=== PATIENT | female | born 1950 | race Caucasian/White ===

== ENCOUNTER → 2018-06-20 17:18 | Outpatient (REF) | payer MEDICARE, SELFPAY ==
[2018-06-20 17:58] LABS: Add Manual Diff / Slide Review NO; Basophils Absolute Auto 100 /uL (0-100); Basophils Percent Auto 2.3 % (0-2); Eosinophils Absolute Auto 100 /uL (0-450); Eosinophils Percent Auto 1.8 % (2-4); Hematocrit 41.6 % (36-46); Hemoglobin 13.8 g/dL (12.0-16.0); Lymphocytes Absolute Auto 1300 /uL (1100-4500); Lymphocytes Percent Auto 28.5 % (25-40); Mean Corpuscular HGB Conc 33.1 % (30-36); Mean Corpuscular Hemoglobin 29.6 PG (26-34); Mean Corpuscular Volume 89.3 fL (80-100); Monocytes Absolute Auto 300 /uL (0-900); Monocytes Percent Auto 6.3 % (3-14); Neutrophils Absolute Auto 2800 /uL (1500-7000); Neutrophils Percent Auto 61.1 % (50-75); Platelet Count 215 X10^3/uL (150-400); Red Blood Cell Count 4.66 X10^6/uL (4.0-5.2); Red Cell Distribution Width 12.9 % (11.6-14.8); White Blood Cell Count 4.6 X10^3/uL (4.5-11.0)
[2018-06-20 18:25] LABS: Erythrocyte Sedimentation Rate 8 MM/HR (0-20)
[2018-06-20 18:27] LABS: Alanine Aminotransferase 52 IU/L (9-52); Albumin 4.6 g/dL (3.5-5.0); Albumin Globulin Ratio 1.6 (1.0-2.8); Alkaline Phosphatase 64 U/L (38-126); Aspartate Aminotransferase 32 IU/L (14-36); BUN Creatinine Ratio 21.7 (6-22); Bilirubin Total 0.7 mg/dL (0.2-1.3); Blood Urea Nitrogen 13 mg/dL (7-17); Calcium 9.6 mg/dL (8.4-10.2); Carbon Dioxide 26 mmol/L (22-32); Chloride 103 mmol/L (98-107); Estimated Glomerular Filt Rate > 60.0 mL/min (>60); Globulin 2.9 g/dL (1.7-4.1); Glucose 97 mg/dL (80-110); HEMOLYSIS < 15 (0-50); Sodium 139 mmol/L (137-145); Total Protein 7.5 g/dL (6.3-8.2)
[2018-06-20 18:34] LABS: Rheumatoid Factor < 8.6 IU/mL (<12.0)
[2018-06-20 19:16] LABS: Vitamin B12 913 pg/mL (239-931)
[2018-06-22 21:52] LABS: ANA Screen, IFA Negative (Negative)
[2018-06-22 22:36] LABS: Albumin 4.7 g/dL (3.8-4.8); Alpha 1 Globulin 0.2 g/dL (0.2-0.3); Alpha 2 Globulin 0.6 g/dL (0.5-0.9); Beta 1 Globulin 0.4 g/dL (0.4-0.6); Gamma Globulin 0.9 g/dL (0.8-1.7); Protein, Total 7.1 g/dL (6.1-8.1)
[2018-06-24 08:28] LABS: Vitamin B6 81.7 ng/mL (2.1-21.7)
== END ==
LOC: LAB 17:18
PROVIDERS: Visit Provider Family Medicine Geriatric Medicine
DX: R94.5 Abnormal results of liver function studies (principal); K90.3 Pancreatic steatorrhea; R10.9 Unspecified abdominal pain; G62.9 Polyneuropathy, unspecified; G60.9 Hereditary and idiopathic neuropathy, unspecified
CPT/HCPCS: 36415; 80053; 82607; 84155; 84165; 84207; 84550; 85025; 85651; 86038; 86430

== ENCOUNTER → 2018-07-18 11:01 | Outpatient (CLI) | payer MEDICARE, SELFPAY ==
--- NOTE | 2018-07-18 12:00 | PM.TREADMILL ---
Cardiac Stress Test Report Referral & Results Date Patient Seen: 07/18/18 Requesting provider: Wil Corey Indication: Paroxysmal atrial fibrillation Rest ECG: Unremarkable Procedure Note: Today following both written and verbal informed consent, the patient was exercised according to a standard Jerry protocol. The patient exercised for a total of 6 minutes 14 seconds achieving a maximum heart rate of 119. Patient's maximum systolic blood pressure was 168. This was an estimated 7.0 MET's. There are no ST-T segment changes identified Normal heart rate and blood pressure response to exercise No dysrhythmias identified Functional aerobic impairment rates-5% on the active scale or 105% of normal Impression: No evidence of ischemia Better than average exercise capacity No dysrhythmia Please note: Actual ECG tracings can be found in the PACS system.
== END ==
PROVIDERS: PCP Family Medicine Geriatric Medicine; Visit Provider Internal Medicine Cardiovascular Disease
DX: I48.0 Paroxysmal atrial fibrillation (principal)
CPT/HCPCS: 93016; 93017; 93018

== ENCOUNTER 2023-09-01 09:05 | Day surgery (SDC) | payer MEDICARE, SELFPAY ==
[2023-08-24 07:56] VITALS: BMI 22.1
[2023-09-01] VITALS (8 sets, daily range): BP systolic 125–156; BP diastolic 68–88; PULSE 62–71; RESP 12–18; TEMP 36.6–36.9; O2SAT 96–100; BMI 22.1
[2023-09-01] MEDS: LACTATED RINGERS 1,000 ML 42 ML IV (09:59)
--- NOTE | 2023-09-01 11:55 | P.HP_ITS ---
History of Present Illness History of Present Illness Date Patient Seen: 09/01/23 Time Patient Seen: 11:56 Chief complaint: Left Shoulder Narrative: 73-year-old female with left adhesive capsulitis. Has not had any changes to her symptoms despite extensive conservative management. Denies any distal numbness or tingling today. No other complaints at this time. [facility] Medical History (Updated 09/01/23 @ 10:09 by Michela Dawson RN) Cataract IBS (irritable bowel syndrome) Basal cell carcinoma of nose Insomnia Actinic keratosis Seborrheic dermatitis Bilateral hip pain Autoimmune thyroiditis Trigger thumb, left thumb Secondary parkinsonism, unspecified Paroxysmal A-fib Polyneuropathy Tremor, unspecified Congenital dilatation of esophagus Pancreatic steatorrhea Neuropathy Pain in left shoulder Abnormal results of liver function studies Surgical History (Updated 09/01/23 @ 09:50 by Michela Dawson RN) History of removal of retained hardware Status post open reduction and internal fixation (ORIF) of fracture Social History household members: spouse Smoking Status: Never smoker alcohol intake: current Meds Home Medications and Allergies Home Medications Medication Instructions Recorded Confirmed Type diltiazem HCl 120 mg capsule,24 120 mg PO DAILY 08/24/23 09/01/23 History hr,extended release flecainide 50 mg tablet 50 mg PO Q12H 08/24/23 09/01/23 History levothyroxine 125 mcg tablet 125 mcg PO DAILY 08/24/23 09/01/23 History (Synthroid) progesterone micronized 100 mg 100 mg PO QAM 08/24/23 09/01/23 History capsule rivaroxaban 20 mg tablet (Xarelto) 20 mg PO DAILY 08/24/23 09/01/23 History Allergies Allergy/AdvReac Type Severity Reaction Status Date / Time No Known Drug Allergies Allergy Verified 09/01/23 09:32 Review of Systems Review of Systems ROS: Yes All systems reviewed with the patient and are negative except as otherwise documented Exam Vital Signs (past 8 hours): - 09/01/23 09:39 Temperature 98.2 F Pulse Rate 62 Respiratory Rate 18 Blood Pressure 149/75 H Pulse Oximetry 100 Oxygen Delivery Method Room Air Oxygen Delivery Method Room Air Narrative Exam Narrative: HEENT: Head atraumatic eyes anicteric moist mucous membranes Cardiovascular: Palpable peripheral pulses extremities are warm and well perfus ed Respiratory: Breathing comfortably on room air Psychiatric: Appropriate mood and affect Neuro: No acute deficits Musculoskeletal: Forward elevation 90, external rotation 10, abduction 40 Assessment & Plan Assessment & Plan narrative: Assessment: Left frozen shoulder Plan: Capsular release and manipulation under anesthesia left shoulder
[2023-09-01] MEDS: CEFAZOLIN VIAL 2 GM in SODIUM CHLORIDE 0.9% 100 ML IV (12:17)
[2023-09-01] MEDS: BUPIVACAINE 0.25% W/ EPI (PF) 10 ML VIAL 20 ML INJ (12:18)
[2023-09-01] MEDS: SODIUM CHLORIDE IRRIG SOLUTION 3,000 ML, EPINEPHrine 1 MG IRR (12:19)
--- NOTE | 2023-09-01 12:29 | SUR.OPER ---
Beach chair with OSI shoulder positioner. Eye care per anes. Lower body on padded OR bed. Head in foam padded head cradle, secured with straps & tape. Right arm secured <90 degrees abduction over pillow, secured w/tape. Left arm prepped into sterile field. Pillow under knees. Silk tape over blanket over thighs & lower legs. Confirmed by Dr. Rapp
[2023-09-01] MEDS: OXYCODONE IR 5 MG TABLET PO ×2 (13:19→14:04)
[2023-09-01] MEDS: ACETAMINOPHEN 325 MG TABLET 650 MG PO (13:20)
--- NOTE | 2023-09-01 21:07 | P.OP_ITS ---
Operative Date/Time/Diagnoses Date of procedure: 09/01/23 Time of procedure: 21:07 Pre-op diagnosis: Left frozen shoulder Post-op diagnosis: same Procedure & Clinicians Procedure: Left shoulder capsular release and manipulation under anesthesia Same procedure as scheduled: Yes Indications: Indications: This is a 73-year-old female with a left frozen shoulder status post proximal humerus fracture 18 months ago which was treated nonoperatively.? Unfortunately she was treated in a sling for 3 months and became incredibly stiff.? Currently denies any distal numbness or tingling.? No other complaints at this time.? She does have past medical history of Parkinson's. Surgeon: Ludwig Rapp Data Processing Clerk: Natty Car Anesthesia Type: General Operative Notes Findings: Findings: Preoperative forward elevation 30, abduction 30, external rotation 65 Post manipulation findings, forward elevation 150, abduction 70, external rotation 70 Closure Type: primary Specimen(s): none sent Prosthetic devices, grafts, tissues, transplants, or devices: Implants: None Estimated Blood Loss (mL): 10 Blood products transfused: none Procedure in detail: Procedure in detail: Patient was met in the preoperative holding area.? Her left upper extremity was examined and marked with my initials.? We went over the risks and benefits of surgery again and she wished to go forward.? No block was performed by anesthesia.? She was brought back to the operating room and placed in the lazy beachchair position after smooth induction of anesthesia.? Her left upper extremity was prepped and draped in the standard sterile fashion.? A timeout was performed and my initials were again examined and confirmed on the left upper extremity.? IV antibiotics were given. I began by examining the shoulder and noting the above-noted measurements with forward elevation, external rotation, and abduction.? Her shoulder was very stiff and would not undergo manual manipulation and so we elected to do arthroscopy for capsular release.? A small portal was made posterior in the standard posterior portal and a anterior portal was made outside in above the level of the subscapularis.? An ablator was used to release the rotator interval.? Next, I used a capsular upbiter to release the anterior and inferior capsule.? I removed the instruments and then performed a manipulation starting with forward elevation then doing abduction and then last external rotation.? She had much improved range of motion. The portals were then closed with 3-0 Monocryl and Band-Aids were placed over.? She was woken from anesthesia and transported to the postoperative recovery unit without any complications. Complications: none Post-operative Condition: stable Disposition: PACU Plan for aftercare: Postoperative instructions: Band-Aids can remove after 3 days.? Range of motion to start tomorrow with physical therapy.? All questions were answered fully and to the patient's satisfaction and understanding was expressed with the plan
== END 2023-09-01 11:55 | disposition home or self-care (01) ==
PROVIDERS: Family Provider Family Medicine; PCP Family Medicine; Referring Provider Family Medicine; Visit Provider Orthopaedic Surgery
PROC: 0RQK4ZZ Repair Left Shoulder Joint, Percutaneous Endoscopic Approach (ICD-10-PCS; CPT 29807; principal; 2023-09-01 10:15)
DX: M75.02 Adhesive capsulitis of left shoulder (principal)
CPT/HCPCS: 29825; J0171; J0690; J1100; J2405; J2704; J3010